=== PATIENT | female | born 1985 | race Caucasian/White ===

== ENCOUNTER 2019-08-10 16:43 | Emergency (ER) | payer OTHER ==
[~2019-08-10] VITALS: Ht 165.1 cm; Wt 54.9 kg
--- NOTE | 2019-08-10 17:10 | NUR ---
Patient seen by Dr. Quintero.
[2019-08-10] MEDS: IBUPROFEN 800 MG TABLET PO ONE (17:24)
[2019-08-10] MEDS ORDERED: IBUPROFEN 800 MG TABLET ONE (17:24)
--- NOTE | 2019-08-10 17:25 | NUR ---
Administered Motrin as ordered with snack, explained possible adverse effects to patient.
--- NOTE | 2019-08-10 17:40 | NUR ---
Patient taken to CT and CXR.
[2019-08-10 18:23] VITALS: BP 113/61
== END 2019-08-10 18:31 | disposition home or self-care (01) ==
LOC: ER 16:49
DX: S60.222A Contusion of left hand, initial encounter (principal); S16.1XXA Strain of muscle, fascia and tendon at neck level, initial encounter; S06.0X0A Concussion without loss of consciousness, initial encounter; V47.5XXA Car driver injured in collision with fixed or stationary object in traffic accident, initial encounter; Y93.89 Activity, other specified; Y92.89 Other specified places as the place of occurrence of the external cause; Y99.8 Other external cause status
CPT/HCPCS: 70450; 72125; 73130; A4663